=== PATIENT | female | born 1960 | race Caucasian/White ===

== ENCOUNTER 2020-03-29 09:43 | Emergency (ER) | payer BC ==
[2020-03-29] MEDS ORDERED: Oxymetazoline HCl 0.05% (30 ML BOT) ONE (10:13)
[2020-03-29] MEDS ORDERED: Oxymetazoline HCl 0.05% (30 ML BOT) NS SCH (10:15)
[2020-03-29] MEDS ORDERED: Silver Nitrate Application 1 EACH ONE (10:34)
== END 2020-03-29 11:05 | disposition home or self-care (01) ==
LOC: ERS 09:43
DX: R04.0 Epistaxis (principal); I10 Essential (primary) hypertension
CPT/HCPCS: 30903